=== PATIENT | female | born 1990 | race Caucasian/White ===

== ENCOUNTER → 2018-02-24 | Outpatient (CLI) | payer OTHER ==
[2018-02-24 14:06] VITALS: BP 117/93; PULSE 94; TEMP 97.8; BMI 45.6
--- NOTE | 2018-02-24 16:35 | P.HPBAR ---
Bariatric H&P - History & Physicial H&P Date: 02/24/18 History & Physicial: Visit/CC: sleeve consult Patient initial contact: Initial weight: 148.552 kg Initial weight in pounds: 327.50 Height: 5 ft 11 in Initial BMI: 45.6 Last weight: Current weight: 148.552 kg Current weight in pounds: 327.50 Current BMI: 45.6 [place] body weight (based on NIH guidelines): 70.307 kg Excess body weight loss: 0.0% The patient is a 27 year-old F who presents for Bariatric Assessment. The second 27-year-old female who is undergoing new patient consultation for sleeve gastrectomy. Patient's had lifetime problems morbid obesity. Her BMI is 46. The patient has a good understanding of sleeve gastrectomy. Past Medical History Past Medical History: GERD/Reflux, Thyroid Disorder Additional Past Medical History / Comment(s): Hypothyroidism (takes synthroid) History of Any Multi-Drug Resistant Organisms: None Reported Past Surgical History: Section, Cholecystectomy Additional Past Surgical History / Comment(s): x1, Past Anesthesia/Blood Transfusion Reactions: No Reported Reaction Past Psychological History: No Psychological Hx Reported Smoking Status: Never smoker Past Alcohol Use History: None Reported Past Drug Use History: None Reported Surgical - Exam Vital Signs Temp Pulse BP 97.8 F 94 117/93 02/24/18 14:02 02/24/18 14:02 02/24/18 14:02 - General well developed, no distress - Eyes PERRL - ENT normal pinna - Neck no masses - Respiratory normal expansion - Cardiovascular Rhythm: regular - Abdomen Abdomen: soft, non tender Bariatric Assessment & Plan Plan: Morbid obesity with BMI 46. Patient will undergo EGD. She will follow-up in one month. We will schedule her for sleeve gastrectomy once her insurance authorization has been completed. We went over the risks and benefits of surgery including conversion to open procedure and injury to the stomach liver spleen vagotomy dysphagia recurrent GERD symptoms and issues the gastric staple lines bleeding, scarring or perforation. Bariatric Checklist Checklist: Plan: Checklist: EGD: 1. Hiatal hernia: 2. H. Pylori: HgbA1c: Vitamin D: Smoking: Never smoker Primary care physician referral: michael Larson ([employer]) with Dr. Alex Rocha Psychiatry clearance: Cardiology clearance: Sleep study: Diet journal: VTE risk score: VTE risk level: Rehab needs at discharge:
== END | disposition home or self-care (01) ==
LOC: BARWHC3 13:33
PROVIDERS: ATTEND Surgery
DX: E66.01 Morbid (severe) obesity due to excess calories (principal); Z68.42 Body mass index [BMI] 45.0-49.9, adult
CPT/HCPCS: 99211

== ENCOUNTER 2018-03-03 09:34 | Day surgery (SDC) | payer OTHER ==
[2018-02-28 08:42] VITALS: BMI 45.0
[~2018-03-03 09:34] MED LIST: LACTATED RINGERS 1,000 ML IV SCH
[2018-03-03 09:50] VITALS: TEMP 98.6
[2018-03-03] MEDS ORDERED: fentaNYL (PF) 50 MCG/ML 2 ML AMP ONE (10:10)
[2018-03-03] MEDS ORDERED: LIDOCAINE 1% INJ 10MG/ML (20 ML MDV) ONE (10:10)
[2018-03-03] MEDS ORDERED: PROPOFOL 10 MG/ML 20 ML VIAL IV ONE (10:10)
[2018-03-03] MEDS ORDERED: LIDOCAINE 1% 20 ML VIAL (10MG/ML) FOR IV START SQ ONE (10:11)
--- NOTE | 2018-03-03 10:14 | P.GSHP ---
History of Present Illness H&P Date: 03/03/18 Chief Complaint: GERD, morbid obesity This is a 27-year-old female who presents today for EGD. She's had a history of GERD and morbid obesity. Her BMI is 45. She is currently undergoing workup for sleeve gastrectomy. Past Medical History Past Medical History: GERD/Reflux, Thyroid Disorder Additional Past Medical History / Comment(s): Hypothyroidism (takes synthroid) History of Any Multi-Drug Resistant Organisms: None Reported Past Surgical History: Section, Cholecystectomy Additional Past Surgical History / Comment(s): x1, Past Anesthesia/Blood Transfusion Reactions: No Reported Reaction Smoking Status: Never smoker - Past Family History Mother Family Medical History: No Reported History Medications and Allergies Home Medications Medication Instructions Recorded Confirmed Type Levothyroxine Sodium [Synthroid] 88 mcg PO DAILY 02/20/18 03/03/18 History Ranitidine HCl [Zantac] 150 mg PO DAILY 02/20/18 03/03/18 History diphenhydrAMINE [Benadryl] 1 tab PO DAILY PRN 03/03/18 03/03/18 History Allergies Allergy/AdvReac Type Severity Reaction Status Date / Time azithromycin [From Zithromax] Allergy Severe Anaphylaxis Verified 02/28/18 08:32 phentermine [From Adipex-P] Allergy Chest Pain Verified 02/28/18 08:32 Surgical - Exam Vital Signs Temp Pulse Resp BP Pulse Ox 98.6 F 86 16 138/85 100 03/03/18 09:44 03/03/18 09:44 03/03/18 09:44 03/03/18 09:44 03/03/18 09:44 - General well developed, no distress - Eyes PERRL - ENT normal pinna - Neck no masses - Respiratory normal expansion - Cardiovascular Rhythm: regular - Abdomen Abdomen: soft, non tender Assessment and Plan Assessment: GERD, morbid obesity. We'll perform EGD and colonoscopy.
--- NOTE | 2018-03-03 10:25 | P.OP ---
Date of Procedure: 03/03/18 Preoperative Diagnosis: GERD Morbid obesity Postoperative Diagnosis: Antral gastritis Procedure(s) Performed: EGD Anesthesia: MAC Surgeon: Jayson Muniz Pathology: other (Antrum) Condition: stable Disposition: PACU Description of Procedure: The patient's placed on the endoscopy table in the lateral position. She received IV sedation. The gastroscope placed oropharynx and passed in the esophagus and stomach. Scope was then placed through the pylorus. The first and second portion of the duodenum appeared normal. Scope was then brought back the antrum this was mildly inflamed. A biopsies performed. The scope was then retroflexed and the remainder of the stomach appeared normal. There was no significant hiatal hernia. The GE junction was at 40 cm The distal esophagus appeared normal. The proximal esophagus appeared normal. Scope was withdrawn for patient.
[2018-03-03 10:28] VITALS: BP 121/79; PULSE 78; RESP 18
[2018-03-03 10:33] LABS: Anisocytosis Slight; HCT 40.4 % (34.0-46.0); MCH 27.1 pg (25.0-35.0); MCHC 32.2 g/dL (31.0-37.0); Mean Platelet Volume 6.6; Platelet Count 301 k/uL (150-450); RBC 4.81 m/uL (3.80-5.40); RDW 16.3 % (11.5-15.5); WBC 7.2 k/uL (3.8-10.6)
[2018-03-03 10:38] LABS: ALT 20 U/L (9-52); AST 25 U/L (14-36); Albumin 4.4 g/dL (3.5-5.0); Alkaline Phosphatase 76 U/L (38-126); Anion Gap 11 mmol/L; Blood Urea Nitrogen 13 mg/dL (7-17); Calcium 9.8 mg/dL (8.4-10.2); Carbon Dioxide 23 mmol/L (22-30); Chloride 108 mmol/L (98-107); Glucose 94 mg/dL (74-99); Potassium 4.3 mmol/L (3.5-5.1); Sodium 142 mmol/L (137-145); Total Bilirubin 0.9 mg/dL (0.2-1.3); Total Protein 8.4 g/dL (6.3-8.2)
[2018-03-03 19:29] LABS: Hemoglobin A1C 5.2 % (4.0-6.0)
== END 2018-03-03 10:58 | disposition home or self-care (01) ==
LOC: ORWHC2ENDO 09:34
PROVIDERS: ATTEND Surgery
DX: K29.50 Unspecified chronic gastritis without bleeding (principal); E66.01 Morbid (severe) obesity due to excess calories; Z68.42 Body mass index [BMI] 45.0-49.9, adult; K21.9 Gastro-esophageal reflux disease without esophagitis; E03.9 Hypothyroidism, unspecified; Z90.49 Acquired absence of other specified parts of digestive tract; Z79.890 Hormone replacement therapy; Z79.899 Other long term (current) drug therapy; Z88.1 Allergy status to other antibiotic agents; Z88.8 Allergy status to other drugs, medicaments and biological substances
CPT/HCPCS: 81025; 88305; 80053; 82607; 84443; 85027; 82306; 83036; 43239; J2001; J3010; J2704

== ENCOUNTER → 2018-03-17 | Outpatient (CLI) | payer OTHER ==
[2018-03-17 16:15] VITALS: BP 109/82; PULSE 86; TEMP 98; BMI 45.8
--- NOTE | 2018-03-17 16:45 | P.HPBAR ---
Bariatric H&P - History & Physicial H&P Date: 03/17/18 History & Physicial: Visit/CC: presurgical consultation Patient initial contact: Initial weight: 148.552 kg Initial weight in pounds: 327.50 Height: 5 ft 11 in Initial BMI: 45.6 Last weight: Current weight: 149.187 kg Current weight in pounds: 328.90 Current BMI: 45.8 [place] body weight (based on NIH guidelines): 70.307 kg Excess body weight loss: The patient is a 27 year-old F who presents for Bariatric Assessment. Patient presents for presurgical consultation. She has almost completed her 12 months of position directly weight loss. She is scheduled for a psychiatric evaluation April. Her BMI is 46. She seems to have a very good understanding of sleeve yesterday. We went over the procedure again. Past Medical History Past Medical History: GERD/Reflux, Thyroid Disorder Additional Past Medical History / Comment(s): Hypothyroidism (takes synthroid) History of Any Multi-Drug Resistant Organisms: None Reported Past Surgical History: Section, Cholecystectomy Additional Past Surgical History / Comment(s): x1, Past Anesthesia/Blood Transfusion Reactions: No Reported Reaction Past Psychological History: No Psychological Hx Reported Smoking Status: Never smoker Past Alcohol Use History: None Reported Past Drug Use History: None Reported - Past Family History Mother Family Medical History: No Reported History Surgical - Exam Vital Signs Temp Pulse BP 98 F 86 109/82 03/17/18 14:36 03/17/18 14:36 03/17/18 14:36 - General well developed, no distress - Eyes PERRL - ENT normal pinna - Neck no masses - Respiratory normal expansion - Cardiovascular Rhythm: regular - Abdomen Abdomen: soft, non tender Bariatric Assessment & Plan Plan: Morbid obesity with severe comorbidities. 46. Patient will be scheduled for sleeve gastrectomy once insurance authorization is obtained. Bariatric Checklist Checklist: Plan: Checklist: EGD: 1. Hiatal hernia: 2. H. Pylori: HgbA1c: Vitamin D: Smoking: Never smoker Primary care physician referral: michael Larson (COMBAT SYSTEMS OPERATOR) with Dr. Alex Rocha Psychiatry clearance: Cardiology clearance: Sleep study: Diet journal: VTE risk score: VTE risk level: Rehab needs at discharge:
== END | disposition home or self-care (01) ==
LOC: BARWHC3 12:59
PROVIDERS: ATTEND Surgery
DX: E66.01 Morbid (severe) obesity due to excess calories (principal); Z68.42 Body mass index [BMI] 45.0-49.9, adult
CPT/HCPCS: 99211

== ENCOUNTER → 2018-04-21 | Outpatient (CLI) | payer OTHER ==
[2018-04-21 09:29] VITALS: BMI 45.5
[2018-04-21 14:43] VITALS: BP 128/74; PULSE 76; TEMP 98.4
--- NOTE | 2018-04-25 14:48 | P.HPBAR ---
Bariatric H&P - History & Physicial H&P Date: 04/25/18 History & Physicial: Visit/CC: PRESURGICAL VISIT Patient initial contact: Initial weight: 148.552 kg Initial weight in pounds: 327.50 Height: 5 ft 11 in Initial BMI: 45.6 Last weight: Current weight: 148.053 kg Current weight in pounds: 326.40 Current BMI: 45.5 [place] body weight (based on NIH guidelines): 70.307 kg Excess body weight loss: 0.6% The patient is a 27 year-old F who presents for Bariatric Assessment. Patient presents today for presurgical surgical gastric sleeve consultation. The patient is morbidly obese with a BMI of 45. She has a good understanding of sleeve gastrectomy. We have already gone over the risks benefits of procedure. This was reinforced today. Past Medical History Past Medical History: GERD/Reflux, Thyroid Disorder Additional Past Medical History / Comment(s): Hypothyroidism (takes synthroid) History of Any Multi-Drug Resistant Organisms: None Reported Past Surgical History: Section, Cholecystectomy Additional Past Surgical History / Comment(s): x1, Past Anesthesia/Blood Transfusion Reactions: No Reported Reaction Past Psychological History: No Psychological Hx Reported Smoking Status: Never smoker Past Alcohol Use History: None Reported Past Drug Use History: None Reported - Past Family History Mother Family Medical History: No Reported History Surgical - Exam Vital Signs Temp Pulse BP 98.4 F 76 128/74 04/21/18 14:39 04/21/18 14:39 04/21/18 14:39 - General well developed, no distress - Eyes PERRL - ENT normal pinna - Neck no masses - Respiratory normal expansion - Cardiovascular Rhythm: regular - Abdomen Abdomen: soft, non tender - Integumentary 5 cm lipoma on her right axilla Bariatric Assessment & Plan Plan: Morbid obesity. BMI of 46. Patient was scheduled for sleeve gastrectomy once her insurance authorization's request have been met. Bariatric Checklist Checklist: Plan: Checklist: EGD: 1. Hiatal hernia: 2. H. Pylori: HgbA1c: Vitamin D: Smoking: Never smoker Primary care physician referral: michael Larson (TESTS SUPERINTENDENT) with Dr. Alex Rocha Psychiatry clearance: Cardiology clearance: Sleep study: Diet journal: VTE risk score: VTE risk level: Rehab needs at discharge:
== END | disposition home or self-care (01) ==
LOC: BARWHC3 09:07
PROVIDERS: ATTEND Surgery
DX: E66.01 Morbid (severe) obesity due to excess calories (principal); Z68.42 Body mass index [BMI] 45.0-49.9, adult; Z90.49 Acquired absence of other specified parts of digestive tract
CPT/HCPCS: 97804; G0463; 99211

== ENCOUNTER 2018-06-30 06:44 | Day surgery (SDC) | payer OTHER ==
[2018-06-26 08:57] VITALS: BMI 45.9
[~2018-06-30 06:44] MED LIST changes: +DEXAMETHASONE SOD PHOSPHATE 10 MG/ML 1 ML VIAL IV ONE; +HEPARIN SODIUM,PORCINE 5,000 UNIT/ML 1 ML VIAL SQ ONE; +LIDOCAINE 1% 20 ML VIAL (10MG/ML) FOR IV START INTRADERMA PRN; +MIDAZOLAM (PF) 2 MG/2 ML VIAL IV PRN; +Pre Op ABX Message 1 EACH MISC MISCELLANE ONE; +fentaNYL (PF) 50 MCG/ML 2 ML AMP IV PRN
[2018-06-30] MEDS ORDERED: DEXAMETHASONE SOD PHOS (MDV) 100 MG/10 ML VIAL IV ONE (07:25)
[2018-06-30] MEDS ORDERED: LIDOCAINE 1% INJ 10MG/ML (20 ML MDV) ONE (07:55)
[2018-06-30] MEDS ORDERED: MIDAZOLAM 2 MG/2 ML VIAL ONE (07:55)
[2018-06-30] MEDS ORDERED: fentaNYL (PF) 50 MCG/ML 2 ML AMP ONE (07:55)
[2018-06-30] MEDS ORDERED: PROPOFOL 10 MG/ML 20 ML VIAL IV ONE (07:55)
[2018-06-30] MEDS ORDERED: SUCCINYLCHOLINE CHLORIDE 100 MG/5 ML SYR IV ONE (07:55)
--- NOTE | 2018-06-30 08:01 | P.GSHP ---
History of Present Illness H&P Date: 06/30/18 Chief Complaint: Right axillary lipoma This is a 27-year-old female who presents today for excision of a right axillary lipoma. Patient is developed a 5 cm mass in her right axilla. Patient says she has complaints of fullness and pain in her axilla related to the mass. Past Medical History Past Medical History: GERD/Reflux, Thyroid Disorder Additional Past Medical History / Comment(s): Hypothyroidism (takes synthroid) History of Any Multi-Drug Resistant Organisms: None Reported Past Surgical History: Section, Cholecystectomy Additional Past Surgical History / Comment(s): x1, Past Anesthesia/Blood Transfusion Reactions: No Reported Reaction Additional Past Anesthesia/Blood Transfusion Reaction / Comment(s): no hx blood transfusion Smoking Status: Never smoker - Past Family History Mother Family Medical History: No Reported History Medications and Allergies Home Medications Medication Instructions Recorded Confirmed Type Levothyroxine Sodium [Synthroid] 88 mcg PO QAM 02/20/18 06/30/18 History diphenhydrAMINE [Benadryl] 25 mg PO DAILY PRN 03/03/18 06/30/18 History Acetaminophen [Tylenol] 1,000 mg PO DAILY PRN 06/26/18 06/30/18 History Allergies Allergy/AdvReac Type Severity Reaction Status Date / Time azithromycin [From Zithromax] Allergy Severe Anaphylaxis Verified 06/30/18 07:04 phentermine [From Adipex-P] Allergy Chest Pain Verified 06/30/18 07:04 Surgical - Exam Vital Signs Temp Pulse Resp BP Pulse Ox 98 F 72 16 128/68 97 06/30/18 07:05 06/30/18 07:05 06/30/18 07:05 06/30/18 07:05 06/30/18 07:05 - General well developed, well nourished, no distress - Eyes PERRL - ENT normal pinna - Neck no masses - Respiratory normal expansion - Cardiovascular Rhythm: regular - Abdomen Abdomen: soft, non tender - Integumentary 5 cm lipoma in right axilla Assessment and Plan Assessment: Right axillary lipoma. We'll perform excision.
[2018-06-30] MEDS ORDERED: ceFAZolin 1,000 MG VIAL IV ONE (08:17)
[2018-06-30] MEDS ORDERED: BUPIVACAIN-EPI 0.5%-1:200,000 30 ML VIAL SQ ONE ×2 (08:18)
[2018-06-30] MEDS ORDERED: HYDROmorphone 1 MG/ML 1 ML SYRINGE IVP ONE ×2 (09:04→09:33)
[2018-06-30 09:10] VITALS: TEMP 97.4
[2018-06-30] MEDS ORDERED: ONDANSETRON 4 MG/2 ML VIAL IVP ONE (09:16)
[2018-06-30] MEDS ORDERED: LACTATED RINGERS 1,000 ML IV ONE (09:36)
[2018-06-30 09:51] VITALS: RESP 18
[2018-06-30] MEDS ORDERED: HYDROcodone/APAP 7.5-325MG 1 EACH TAB PO ONE (09:54)
--- NOTE | 2018-06-30 10:32 | P.OP ---
Date of Procedure: 06/30/18 Preoperative Diagnosis: Right axillary lipoma Postoperative Diagnosis: Right axillary lipoma Procedure(s) Performed: Excision of right axillary lipoma Anesthesia: LI Surgeon: Jayson Muniz Estimated Blood Loss (ml): 5 Pathology: other (Right axillary lipoma) Condition: stable Disposition: PACU Description of Procedure: The patient's placed on the operating table in the supine position. She received general anesthesia. Her right axilla was prepped and draped usual sterile fashion. Using a 15 blade the skin was incised and the axilla and then using electrocautery the axillary lipoma was dissected free. The lipoma measured approximately 8 cm in diameter. A PANCHO drains placed into the wound. This was brought out through separate stab incision. The skin was closed with interrupted 3-0 Monocryl suture. Dermabond dressings was applied. Patient top procedure well and was sent to recovery in stable condition.
[2018-06-30 10:45] VITALS: BP 130/81; PULSE 80
== END 2018-06-30 11:04 | disposition home or self-care (01) ==
LOC: OR 06:44
PROVIDERS: ATTEND Surgery
DX: D17.21 Benign lipomatous neoplasm of skin and subcutaneous tissue of right arm (principal); K21.9 Gastro-esophageal reflux disease without esophagitis; E03.9 Hypothyroidism, unspecified; Z79.890 Hormone replacement therapy; Z88.1 Allergy status to other antibiotic agents; Z88.8 Allergy status to other drugs, medicaments and biological substances; Z90.49 Acquired absence of other specified parts of digestive tract
CPT/HCPCS: 81025; 88304; 11406; J2250; J1644; J2405; J0690; J2001; J3010; J1170; J1100; J0330; J2704